=== PATIENT | female | born 1960 | race Caucasian/White ===

== ENCOUNTER 2021-04-22 20:18 | Emergency (ER) | payer OTHER ==
--- NOTE | 2021-04-22 20:53 | EDM.PDOC ---
ED HPI GENERAL MEDICAL PROBLEM - General Chief Complaint: General Stated Complaint: FELL & INJURED RIBS ON RIGHT SIDE Time Seen by Provider: 04/22/21 20:52 Source of Information: Reports: Patient, RN Notes Reviewed - History of Present Illness INITIAL COMMENTS - FREE TEXT/NARRATIVE: Pt fell off a stool hanging a window shade. Fell unto a stack of lumbar injuring R ribs. Hurts to breathe and move. No head, neck, back or other major discomfort. Treatments [employer]: Reports: Other (see below) Other Treatments [employer] M[employer] OPERATOR: none Right Pain Score (Numeric/FACES): 7 - Related Data Allergies Allergy/AdvReac Type Severity Reaction Status Date / Time acetaminophen [From Lortab] Allergy Severe Itching Verified 04/22/21 20:48 hydrocodone [From Lortab] Allergy Severe Itching Verified 04/22/21 20:48 Home Meds: Home Meds Cetirizine [ZyrTEC] 10 mg PO DAILY 04/22/21 [History] Sertraline [Zoloft] 25 mg PO DAILY 04/22/21 [History] buPROPion [Wellbutrin] 1,550 mg PO DAILY 04/22/21 [History] oxyCODONE HCl/Acetaminophen [Percocet 5-325 mg Tablet] 1 each PO Q6HR PRN #14 tablet 04/22/21 [Rx] ED ROS GENERAL - Review of Systems Review Of Systems: See Below Constitutional: Reports: No Symptoms HEENT: Reports: No Symptoms Respiratory: Reports: Pleuritic Chest Pain. Denies: Shortness of Breath Cardiovascular: Reports: Chest Pain GI/Abdominal: Denies: Abdominal Pain, Nausea, Vomiting Musculoskeletal: Denies: Neck Pain, Shoulder Pain, Back Pain, Leg Pain Skin: Reports: No Symptoms Neurological: Reports: No Symptoms ED EXAM, GENERAL - Physical Exam Exam: See Below General Appearance: Alert, Moderate Distress Head: Atraumatic Neck: Supple, Non-Tender Respiratory/Chest: No Respiratory Distress, Lungs Clear, Other (R lower lateral rib and R lower ant chest wall tenderness, no visible swelling, no crepitus) Cardiovascular: Regular Rate, Rhythm GI/Abdominal: Soft, Non-Tender. No: Guarding Extremities: Normal Inspection, Other (hips, shoulders nontender) Neurological: Alert, Oriented, No Motor/Sensory Deficits Course - Vital Signs Last Recorded V/S: Last Vital Signs Temp 97.8 F 04/22/21 20:54 Pulse 76 04/22/21 20:54 Resp 20 04/22/21 20:54 BP 132/88 04/22/21 20:54 Pulse Ox 97 04/22/21 20:54 - Orders/Labs/Meds Orders: Active Orders 24 hr Category Date Time Status Ribs 2V w Chest Rt [CR] Stat Exams 04/22/21 21:08 Taken Meds: Medications Discontinued Medications Generic Name Dose Route Start Last Admin Trade Name Freq PRN Reason Stop Dose Admin Hydrocodone Bitart/Acetaminophen 1 tab 04/22/21 21:07 04/22/21 21:20 Acetaminophen/Hydrocodone 325-5 Mg Tab PO 04/22/21 21:08 Not Given ONETIME ONE Ketorolac Tromethamine 60 mg 04/22/21 22:22 04/22/21 22:37 Ketorolac 60 Mg/2 Ml Sdv IM 04/22/21 22:23 60 mg ONETIME ONE Administration Oxycodone/Acetaminophen 1 tab 04/22/21 21:12 04/22/21 21:23 Acetaminophen/Oxycodone 325-5 Mg Tab PO 04/22/21 21:13 1 tab ONETIME ONE Administration - Re-Assessments/Exams Free Text/Narrative Re-Assessment/Exam: 04/23/21 00:07 X rays no visible rib fx, no evidence for pulmonary abnormality, discharge instr. as documented. Departure - Departure Time of Disposition: 22:29 Disposition: Home, Self-Care 01 Condition: Fair Clinical Impression: Fall Qualifiers: Encounter type: initial encounter Qualified Code(s): W19.XXXA - Unspecified fall, initial encounter Chest wall contusion Qualifiers: Encounter type: initial encounter Laterality: right Qualified Code(s): S20.211A - Contusion of right front wall of thorax, initial encounter - Discharge Information Prescriptions: oxyCODONE HCl/Acetaminophen [Percocet 5-325 mg Tablet] 1 each PO Q6HR PRN #14 tablet PRN Reason: Pain Instructions: Chest Wall Pain, [id number] Referrals: PCP,Not In Area [Primary Care Provider] - Forms: ED Department Discharge Additional Instructions: Rest, no heavy lifting. Alternate ice and heat as needed. Tylenol for mild to moderate discomfort, percocet when needed for severe pain. Prescription has been sent to the [facility]. You can also take aleve twice daily or ibuprofen 3 times daily for extra pain relief starting tomorrow morning. Do not drive when taking the percocet. Follow up clinic if not much better within 7 to 10 days as expected. Return to ED as needed. Sepsis Event Note (ED) - Focused Exam Vital Signs: Vital Signs Temp Pulse Resp BP Pulse Ox 04/22/21 20:54 97.8 F 76 20 132/88 97 - My Orders Last 24 Hours: My Active Orders 04/22/21 21:08 Ribs 2V w Chest Rt [CR] Stat - Assessment/Plan Last 24 Hours: My Active Orders 04/22/21 21:08 Ribs 2V w Chest Rt [CR] Stat
[2021-04-22] MEDS ORDERED: Acetaminophen/HYDROcodone 325-5 MG Tab PO ONE (21:07)
[2021-04-22] MEDS ORDERED: Acetaminophen/oxyCODONE 325-5 MG Tab PO ONE (21:12)
[2021-04-22] MEDS ORDERED: Ketorolac 60 MG/2 ML SDV IM ONE (22:22)
--- NOTE | 2021-04-23 06:47 | CR ---
Chest and right ribs: Frontal view of the chest is obtained as well as 3 views of the right ribs. Comparison: No prior study is available for comparison. Heart size and mediastinum are normal. Lungs show no acute parenchymal change. No pleural effusions or pneumothorax are seen. No discrete fracture or other rib abnormality is appreciated. Impression: 1. Nothing acute is seen on frontal chest x-ray. 2. No discrete right-sided rib abnormality is appreciated. Note: Nondisplaced fracture could be missed. Diagnostic code #1
== END 2021-04-22 22:42 | disposition home or self-care (01) ==
LOC: JD.ED 20:18
DX: S20.211A Contusion of right front wall of thorax, initial encounter (principal); Z88.6 Allergy status to analgesic agent; Z88.5 Allergy status to narcotic agent; W20.8XXA Other cause of strike by thrown, projected or falling object, initial encounter
CPT/HCPCS: 71101; 96372; 99283; A9270; J1885